=== PATIENT | female | born 1960 | race African-American/Black ===

== ENCOUNTER 2019-08-05 11:13 | Emergency (ER) | payer OTHER ==
[~2019-08-05] VITALS: Ht 167.6 cm; Wt 99.8 kg
[2019-08-05 11:33] LABS: URINE BILIRUBIN NEGATIVE (Negative); URINE BLOOD NEGATIVE (Negative); URINE CLARITY CLEAR; URINE COLOR YELLOW; URINE GLUCOSE-RANDOM* NEGATIVE (Negative); URINE KETONES NEGATIVE (Negative); URINE LEUKOCYTES-REFLEX NEGATIVE (Negative); URINE NITRITE-REFLEX NEGATIVE (Negative); URINE PROTEIN (DIPSTICK) NEGATIVE (Negative); URINE SPECIFIC GRAVITY <= 1.005 (1.005-1.035); URINE UROBILINOGEN 0.2 E.U./dl (0.2-1.0)
[2019-08-05 11:43] LABS: ABSOLUTE NEUTROPHILS 5.1 thou/uL (1.4-8.2); BASOPHILS 0.5 % (0.0-2.0); EOSINOPHILS 0.4 % (0.0-3.0); HEMATOCRIT 41.9 % (37.0-47.0); HEMOGLOBIN 14.1 gm/dL (12.0-15.0); LYMPHOCYTES 20.6 % (24.0-44.0); MCH 29.3 pg (26.0-34.0); MCHC 33.6 g/dL (28.0-37.0); MCV 87.3 fL (80.0-100.0); MONOCYTES 6.4 % (1.0-8.0); PLATELET COUNT 189 thou/uL (150-400); POLYS 72.1 % (36.0-66.0); RDW 13.9 % (10.5-14.5); WBC 7.1 thou/uL (4.0-11.0)
[2019-08-05 11:51] LABS: ANION GAP 5 mmol/L (7-16); BUN 10 mg/dL (7-18); CALCIUM 9.3 mg/dL (8.5-10.1); CHLORIDE 104 mmol/L (98-107); CO2 32 mmol/L (21-32); CREATININE 0.7 mg/dL (0.6-1.0); GLUCOSE 102 mg/dL (74-106); POTASSIUM 3.1 mmol/L (3.5-5.1); SODIUM 141 mmol/L (136-145)
[2019-08-05 12:01] LABS: ALBUMIN 3.7 g/dL (3.4-5.0); SGOT 23 U/L (15-37); SGPT 12 U/L (30-65); TOTAL BILIRUBIN 0.6 mg/dL (<0.1-1.0); TOTAL PROTEIN 8.1 g/dL (6.4-8.2); TROPONIN-I <0.06 ng/mL (<0.06)
[2019-08-05] MEDS ORDERED: MECLIZINE HCL25 M1 PO (14:00)
[2019-08-05 14:22] VITALS: BP 145/69
--- NOTE | 2019-08-06 07:54 | EKG ---
[place] [address] [facility] [address] ELECTROCARDIOGRAM REPORT Name: JESSICA RUBIN Room #: [facility] Magalis#: [id number] Admission: 08/05/19 Attend Phys: Discharge: 08/05/19 Date of : 62 Report #: [id number] THIS REPORT FOR: //name// [facility] ED Test Date: 2019-08-05 Test Time: 11:20:13 Pat Name: JESSICA RUBIN Department: Room: Gender: F Rn Clinical Documentation Specialist: CHINTAN : 1960 Requested By: Kamille Dawson Order Number: [id number] MD: Indra Del Toro Measurements Intervals [place] Rate: 93 P: 28 MI: 181 QRS: 13 QRSD: 90 T: 31 QT: 349 QTc: 435 Interpretive Statements Sinus rhythm Poor R wave progression No previous ECG available for comparison Electronically Signed On 08-06-2019 7:54:11 CDT by Indra Del Toro [email or web address] <ELECTRONICALLY SIGNED> By: Indra Del Toro MD, [facility] 08/06/19 0754 1120 1120 Indra Del Toro MD, FACC /EPI
== END 2019-08-05 14:37 | disposition home or self-care (01) ==
LOC: ER 11:13
PROVIDERS: Nurse Practitioner Family
DX: E87.6 Hypokalemia (principal); R42 Dizziness and giddiness; E78.5 Hyperlipidemia, unspecified; I10 Essential (primary) hypertension; Z90.49 Acquired absence of other specified parts of digestive tract